=== PATIENT | female | born 1975 | race Caucasian/White ===

== ENCOUNTER 2016-08-07 09:53 | Day surgery (SDC) | payer OTHER ==
[~2016-08-07] VITALS: Ht 152.4 cm; Wt 50.8 kg
[2016-08-07] MEDS ORDERED: TAMOXIFEN CITRA20 MG PO (10:45)
[2016-08-07] MEDS ORDERED: LIDOCAINE 1% 50 ML ONE (12:01)
[2016-08-07] MEDS ORDERED: BUPIVACAINE-MPF/EPI 0.25% 30 ML VIAL INJ ONE (12:01)
[2016-08-07] MEDS ORDERED: ceFAZolin 1,000 MG VIAL ONE (12:03)
[2016-08-07] MEDS ORDERED: MIDAZOLAM 2 MG/2 ML VIAL ONE (12:58)
[2016-08-07] MEDS ORDERED: fentaNYL 0.05 MG/ML VIAL ONE ×2 (12:58→12:59)
[2016-08-07] MEDS ORDERED: PROPOFOL 200 MG/20 ML VIAL IV ONE (13:05)
[2016-08-07] MEDS ORDERED: ACETAMINOPHEN 325 MG TAB PO PRN (14:10)
[2016-08-07] MEDS ORDERED: HYDROmorphone 1 MG/ML AMP IVP PRN ×2 (14:10→14:15)
[2016-08-07] MEDS ORDERED: MORPHINE SULFATE 2 MG/ML SYR IVP PRN (14:10)
[2016-08-07] MEDS ORDERED: MORPHINE SULFATE 4 MG/ML SYR IV PRN (14:10)
[2016-08-07] MEDS ORDERED: HYDROcodone/APAP 5/325 MG 1 TAB TAB PO PRN (14:10)
[2016-08-07] MEDS ORDERED: ONDANSETRON 4 MG/2 ML VIAL IV PRN (14:10)
[2016-08-07] MEDS ORDERED: LACTATED RINGERS 1,000 ML IV SCH (14:14)
[2016-08-07] MEDS ORDERED: diphenhydrAMINE 50 MG/ML VIAL IVP PRN (14:15)
[2016-08-07] MEDS ORDERED: MEPERIDINE 25 MG/ML SYR IVP PRN (14:15)
[2016-08-07] MEDS ORDERED: ONDANSETRON 4 MG/2 ML VIAL IVP PRN (14:15)
== END 2016-08-07 15:35 | disposition home or self-care (01) ==
LOC: MMU 09:53 → MDS 09:53
PROVIDERS: ATTEND Surgery
DX: Z45.2 Encounter for adjustment and management of vascular access device (principal); Z85.3 Personal history of malignant neoplasm of breast; K21.9 Gastro-esophageal reflux disease without esophagitis
CPT/HCPCS: 36589; 71010; 88300; 93005; J0690; J2001; J2250; J2704; J3010; J3490; J7060; J7120